=== PATIENT | female | born 2000 | race Caucasian/White ===

== ENCOUNTER 2020-12-26 19:57 | Inpatient (IN) ==
[2020-12-26 17:09] LABS: Basophils % 0.3 %; Eosinophils # 0.2 K/mcL (0.0-0.6); Eosinophils % 1.9 %; Hematocrit 38.1 % (35.3-44.9); Hemoglobin 12.6 g/dL (11.5-15.4); Immature Granulocytes % 0.6 % (0-4); Lymphocytes # 1.3 K/mcL (0.6-4.6); Lymphocytes % 11.3 %; Mean Corpuscular HGB Conc 33.1 g/dL (31.6-35.5); Mean Corpuscular Hemoglobin 29.2 pg (28.0-33.3); Mean Corpuscular Volume 88.4 fL (83.0-100.0); Mean Platelet Volume 11.6 fL (9.4-12.4); Monocytes # 0.7 K/mcL (0.0-1.3); Monocytes % 6.7 %; Neutrophils # 8.8 K/mcL (1.6-8.9); Platelet Count 254 K/mcL (140-400); Red Blood Count 4.31 M/mcL (3.82-4.97); Red Cell Distribution Width 13.2 % (11.5-14.5); Segmented Neutrophils % 79.2 %; White Blood Count 11.1 K/mcL (4.3-11.1)
[2020-12-26 17:14] LABS: Protein/Creatinine Ratio,Urine 0.19 mg/mg (0.00-0.20)
[2020-12-26 17:24] LABS: Alanine Aminotransferase 12 Units/L (7-52); Aspartate Amino Transferase 14 Units/L (13-39); BUN/Creatinine Ratio 17 (6-26); Blood Urea Nitrogen 8 mg/dL (6-20); Lactate Dehydrogenase 121 Units/L (140-271); Uric Acid 5.2 mg/dL (2.3-7.6); eGFR For African Americans > 60 (> 60); eGFR For Non-African Americans > 60 (> 60)
[~2020-12-26 19:57] MED LIST: Famotidine 20 MG/2 ML VIAL IVP PRN; Metoclopramide 10 MG/2 ML VIAL IVP PRN; Naloxone 0.4 MG/ML INJ IVP PRN; Ondansetron 4 MG/2 ML VIAL IVP PRN; Oxytocin 20 units/ LR 1000 mL 20 UNIT/1,000 ML BAG IVC SCH; Penicillin G Potassium 5,000,000 UNIT in 0.9 % Sodium Chloride Mini Bag 100 ML IVPB ONE; Ringers Solution, Lactated 1,000 ML IVC SCH; Ringers Solution, Lactated 1,000 ML ONE; miSOPROStoL 25 MCG TABLET PO SCH
[2020-12-26 20:27] LABS: Amphetamine Screen,Urine Negative ng/mL (Cutoff=1000); Barbiturate Screen,Urine Negative ng/mL (Cutoff=200); Benzodiazepines Screen,Urine Negative ng/mL (Cutoff=200); Cannabinoid Screen,Urine Negative ng/mL (Cutoff = 50); Cocaine Screen,Urine Negative ng/mL (Cutoff= 300); Opiate Screen,Urine Negative ng/mL (Cutoff=300); Phencyclidine Screen,Urine Negative ng/mL (Cutoff=25)
[2020-12-26] MEDS ORDERED: *HR* FentaNYL (PF) 100 MCG/2 ML VIAL EP ONE (21:48)
[2020-12-26] MEDS ORDERED: Ropivacaine/PF 0.2% 20 ML VIAL EP ONE (21:48)
[2020-12-26] MEDS ORDERED: EPHEDrine 50 MG/ML VIAL IVP PRN (21:48)
[2020-12-26] MEDS ORDERED: Ropivacaine/PF 0.2% 20 ML VIAL ONE (21:55)
[2020-12-26] MEDS ORDERED: *HR* FentaNYL (PF) 250 MCG/5 ML VIAL ONE (21:55)
[2020-12-26] MEDS ORDERED: Epidural Premix (fent/bupiv) 110 ML EP SCH (22:00)
[2020-12-26] MEDS: Penicillin G Potassium 2,500,000 UNIT/105 ML MLS IVPB SCH (22:15)
[2020-12-27] MEDS: Penicillin G Potassium 2,500,000 UNIT/105 ML MLS IVPB SCH (02:22)
[2020-12-27] MEDS ORDERED: *HR* FentaNYL (PF) 100 MCG/2 ML VIAL ONE (04:34)
[2020-12-27] MEDS ORDERED: Ropivacaine/PF 0.2% 20 ML VIAL ONE (04:34)
[2020-12-27] MEDS ORDERED: Lanolin 7 G OINT...G. TP PRN (08:11)
[2020-12-27] MEDS ORDERED: Oxytocin 20 units/ LR 1000 mL 20 UNIT/1,000 ML BAG IVC ONE (08:11)
[2020-12-27] MEDS ORDERED: Oxytocin 20 units/ LR 1000 mL 20 UNIT/1,000 ML BAG IVC SCH (08:11)
[2020-12-27] MEDS ORDERED: Acetaminophen 325 MG TABLET PO PRN (08:11)
[2020-12-27] MEDS: Benzocaine/Menthol 56 GM AEROSOL SPRAY TP PRN ×2 (08:50→15:49)
[2020-12-27] MEDS: Prenatal Vit/FA 1 EACH TABLET PO SCH (08:51)
[2020-12-27] MEDS: Ibuprofen 600 MG TABLET PO PRN ×2 (08:51→15:48)
[2020-12-28] MEDS: Ibuprofen 600 MG TABLET PO PRN ×2 (00:03→09:46)
[2020-12-28 09:11] VITALS: BP 105/56
[2020-12-28] MEDS: Prenatal Vit/FA 1 EACH TABLET PO SCH (09:46)
== END 2020-12-28 11:47 | disposition home or self-care (01) | DRG 560 ==
LOC: 1NENULAB → 1NENUOBS 12-27 08:10
PROVIDERS: ADMIT Advanced Practice Midwife; ATTEND Advanced Practice Midwife